=== PATIENT | female | born 1965 | race Caucasian/White ===

== ENCOUNTER 2020-11-01 14:44 | Emergency (ER) | payer OTHER, MEDICARE ==
[~2020-11-01] VITALS: Ht 167.6 cm; Wt 45.8 kg
[2020-11-01] MEDS ORDERED: SODIUM CHLORIDE 0.9% 1000ML 1,000 ML IV STA (15:16)
[2020-11-01 16:10] LABS: BASOPHILS # (AUTO) 0.1 (0.0-0.1); BASOPHILS % 0.7 % (0.0-1.0); EOSINOPHILS % 0.3 % (0.0-6.0); HEMATOCRIT 40.8 % (34.2-44.1); HEMOGLOBIN 13.4 g/dL (12.0-16.0); LYMPHOCYTES # (AUTO) 1.6 (1.0-3.2); LYMPHOCYTES % 16.5 % (18.0-39.1); MEAN CORPUSCULAR HEMOGLOBIN 30.5 pg (28-32); MEAN CORPUSCULAR HGB CONC 32.8 g/dL (31-35); MEAN CORPUSCULAR VOLUME 92.9 fL (81-99); MONOCYTES # (AUTO) 0.6 (0.2-0.8); MONOCYTES % 5.7 % (4.4-11.3); NEUTROPHILS # (AUTO) 7.5 (2.1-6.9); PLATELET COUNT 370 x10e3/uL (140-360); RED BLOOD COUNT 4.39 x10e6/uL (3.6-5.1); RED CELL DISTRIBUTION WIDTH 13.4 % (11.7-14.4)
[2020-11-01 16:23] LABS: INR 0.85; PROTHROMBIN TIME 12.2 seconds (11.9-14.5)
[2020-11-01 16:24] LABS: PARTIAL THROMBOPLASTIN TIME 22.8 seconds (23.8-35.5)
[2020-11-01 16:31] LABS: ALANINE AMINOTRANSFERASE 14 IU/L (0-55); ALBUMIN 4.6 g/dL (3.5-5.0); ALBUMIN/GLOBULIN RATIO 1.4 (0.8-2.0); ALKALINE PHOSPHATASE 74 IU/L (40-150); ANION GAP 19.6 mmol/L (8-16); BLOOD UREA NITROGEN 17 mg/dL (7-26); BUN/CREATININE RATIO 16 (6-25); CALCIUM 9.8 mg/dL (8.4-10.2); CARBON DIOXIDE 22 mmol/L (22-29); CHLORIDE 103 mmol/L (98-107); CREATINE KINASE 111 IU/L (29-168); CREATININE, SERUM 1.06 mg/dL (0.57-1.11); EST GLOMERULAR FILTRATION RATE 53 ML/MIN (60-); GLUCOSE 110 mg/dL (74-118); MAGNESIUM 2.1 MG/DL (1.3-2.1); POTASSIUM 3.6 mmol/L (3.5-5.1); SODIUM 141 mmol/L (136-145)
[2020-11-01] MEDS ORDERED: ULTRAM50 MG PO (20:19)
[2020-11-01] MEDS ORDERED: DIPHENHYDRAMINE HCL 25 MG CAP PO ONE (21:15)
[2020-11-01] MEDS ORDERED: TRAMADOL HCL 50 MG TAB PO ONE (21:15)
[2020-11-02 05:06] VITALS: BP 150/86
== END 2020-11-01 22:00 | disposition home or self-care (01) ==
LOC: ER 15:51
DX: S52.032A Displaced fracture of olecranon process with intraarticular extension of left ulna, initial encounter for closed fracture (principal); R50.9 Fever, unspecified; M25.512 Pain in left shoulder; M25.532 Pain in left wrist; M25.552 Pain in left hip; M25.562 Pain in left knee; M25.572 Pain in left ankle and joints of left foot; W01.0XXA Fall on same level from slipping, tripping and stumbling without subsequent striking against object, initial encounter; Y93.01 Activity, walking, marching and hiking; Y92.481 Parking lot as the place of occurrence of the external cause; Z85.6 Personal history of leukemia; Z79.899 Other long term (current) drug therapy; G40.909 Epilepsy, unspecified, not intractable, without status epilepticus; K21.9 Gastro-esophageal reflux disease without esophagitis
CPT/HCPCS: 36415; 70450; 71250; 72125; 74176; 80053; 82550; 82553; 83735; 83880; 84484; 85025; 85610; 85730; 87040